=== PATIENT | male | born 1960 | race Hispanic/Latino ===

== ENCOUNTER 2023-03-28 08:54 | Day surgery (SDC) | payer MEDICARE ==
[2023-03-21 11:14] LABS: BASOPHILS # (AUTO) 0.05 K/uL (0.00-0.20); BASOPHILS % (AUTO) 0.5 % (0.0-5.0); EOSINOPHILS # (AUTO) 0.31 K/uL (0.00-0.70); EOSINOPHILS % (AUTO) 2.8 % (0.0-8.0); HEMATOCRIT 37.6 % (42-54); IMMATURE GRANULOCYTE ABSOLUTE 0.12 K/uL (0-1); LYMPHOCYTES # (AUTO) 2.6 K/uL (1.0-4.8); LYMPHOCYTES % (AUTO) 23.3 % (21.0-51.0); MEAN CORPUSCULAR HEMOGLOBIN 29.5 pg (27.0-33.0); MEAN CORPUSCULAR HGB CONC 33.5 g/dL (32.0-36.0); MEAN CORPUSCULAR VOLUME 88.1 fL (79-99); MONOCYTES # (AUTO) 0.9 K/uL (0.1-1.0); MONOCYTES % (AUTO) 7.9 % (3.0-13.0); NEUTROPHILS # (AUTO) 7.1 K/uL (1.8-7.7); NEUTROPHILS % (AUTO) 64.4 % (40.0-77.0); PLATELET COUNT (AUTO) 365 K/uL (130-400); RED BLOOD CELL COUNT(AUTO) 4.27 MIL/uL (4.50-6.20); RED CELL DISTRIBUTION WIDTH 13.2 % (11.0-15.5); WHITE BLOOD COUNT (AUTO) 11.1 K/uL (4.8-10.8)
[2023-03-21 11:18] VITALS: BP 136/82; PULSE 96; RESP 18
[2023-03-21 11:19] LABS: CREATININE 1.5 mg/dL (0.5-1.5); POTASSIUM 5.1 mmol/L (3.5-5.1)
[2023-03-21 11:23] LABS: INR < 0.93 (0.85-1.15); PROTHROMBIN TIME 10.7 SEC (9.6-11.6)
[2023-03-21 11:25] LABS: PARTIAL THROMBOPLASTIN TIME 28.2 SEC (26.3-35.5)
[2023-03-21 11:58] LABS: B-TYPE NATRIURETIC PEPTIDE 23 pg/mL (0-100)
[2023-03-28] VITALS (7 sets, daily range): BP systolic 148–164; BP diastolic 88–98; PULSE 96–107; RESP 13–18
[~2023-03-28] VITALS: Ht 160 cm; Wt 107.9 kg
[~2023-03-28 08:54] MED LIST: ATOR40TA69 PO; CARV6.25 PO; EMPA10TA PO; FURO40TA5 PO; GABA-529 PO; INSU100I35 SQ; LISI20TA24 PO; NITR0.4T50 SL; SEMA2PEN SQ
[2023-03-28] MEDS ORDERED: 0.9%NACL 1000ML 1,000 ML IV ONE (09:22)
[2023-03-28] MEDS ORDERED: VERAPAMIL HCL 2.5 MG/ML VIAL ONE (11:29)
[2023-03-28] MEDS ORDERED: LIDOCAINE HCL 400MG/20ML VIAL ONE (11:29)
[2023-03-28] MEDS ORDERED: HEPARIN 10,000 UNIT/10ML (1,000 UNIT/ML) VIAL ONE (11:30)
[2023-03-28] MEDS ORDERED: IOHEXOL 350 MG/ML 100ML INFUS..BTL IV ONE (11:39)
[2023-03-28] MEDS ORDERED: FENTANYL CITRATE PF 50 MCG/1 ML 2ML VIAL ONE (11:46)
[2023-03-28] MEDS ORDERED: MIDAZOLAM HCL 1 MG/ML 2ML VIAL ONE (11:46)
[2023-03-28] MEDS ORDERED: HYDRALAZINE 20MG/ML VIAL ONE (12:20)
[2023-03-28] MEDS ORDERED: IOHEXOL-350 50ML VIAL IV ONE (12:22)
[2023-03-28] MEDS ORDERED: DEXTROSE 50%-WATER 50 ML DISP.SYRIN IV PRN (13:00)
[2023-03-28] MEDS ORDERED: GLUCAGON 1MG KIT 1 MG ML IM PRN (13:00)
[2023-03-28] MEDS ORDERED: 0.9%NACL 1000ML 1,000 ML IV SCH (13:00)
[2023-03-28] MEDS ORDERED: ACETAMINOPHEN WITH CODEINE 1 TAB TAB PO PRN (13:00)
[2023-03-28] MEDS ORDERED: AEC81 PO (13:49)
== END 2023-03-28 15:30 | disposition home or self-care (01) ==
LOC: DAH 08:54
PROVIDERS: ATTEND Internal Medicine
DX: I25.118 Atherosclerotic heart disease of native coronary artery with other forms of angina pectoris (principal); I25.82 Chronic total occlusion of coronary artery; I11.0 Hypertensive heart disease with heart failure; I50.42 Chronic combined systolic (congestive) and diastolic (congestive) heart failure; I25.5 Ischemic cardiomyopathy; E11.9 Type 2 diabetes mellitus without complications; I25.2 Old myocardial infarction; Z79.899 Other long term (current) drug therapy; Z95.5 Presence of coronary angioplasty implant and graft; Z82.49 Family history of ischemic heart disease and other diseases of the circulatory system; Z83.3 Family history of diabetes mellitus; Z79.82 Long term (current) use of aspirin; Z79.01 Long term (current) use of anticoagulants; Z98.890 Other specified postprocedural states
CPT/HCPCS: 80048; 83880; 85025; 85610; 85730; 36415; 71045; 93005; 93458; 82948 ×2; C1769; C1894; A4649; J3010; J3490 ×2; J7030; J0360; J1644 ×2; J2250; Q9967 ×2; A4215; A4222; A4221; A4663; A4216; A4606; Q9965; A4223 ×3; 96360; 96361; 99156; 99157

== ENCOUNTER 2023-05-29 06:11 | Day surgery (SDC) | payer MEDICARE ==
[2023-05-27 10:33] LABS: BASOPHILS # (AUTO) 0.04 K/uL (0.00-0.20); BASOPHILS % (AUTO) 0.4 % (0.0-5.0); EOSINOPHILS % (AUTO) 1.9 % (0.0-8.0); HEMATOCRIT 38.9 % (42-54); IMMATURE GRANULOCYTE ABSOLUTE 0.07 K/uL (0-1); LYMPHOCYTES # (AUTO) 2.3 K/uL (1.0-4.8); LYMPHOCYTES % (AUTO) 22.1 % (21.0-51.0); MEAN CORPUSCULAR HEMOGLOBIN 29.6 pg (27.0-33.0); MEAN CORPUSCULAR HGB CONC 33.9 g/dL (32.0-36.0); MEAN CORPUSCULAR VOLUME 87.2 fL (79-99); MONOCYTES # (AUTO) 0.8 K/uL (0.1-1.0); MONOCYTES % (AUTO) 7.6 % (3.0-13.0); NEUTROPHILS % (AUTO) 67.3 % (40.0-77.0); PLATELET COUNT (AUTO) 260 K/uL (130-400); RED BLOOD CELL COUNT(AUTO) 4.46 MIL/uL (4.50-6.20); RED CELL DISTRIBUTION WIDTH 14.1 % (11.0-15.5); WHITE BLOOD COUNT (AUTO) 10.4 K/uL (4.8-10.8)
[2023-05-27 10:36] LABS: APPEARANCE,URINE CLEAR (CLEAR); BILIRUBIN,URINE NEGATIVE (NEGATIVE); GLUCOSE, URINE (UA) >=1000 mg/dL (NEGATIVE); KETONES,URINE NEGATIVE (NEGATIVE); LEUKOCYTE ESTERASE ,URINE NEGATIVE Leu/uL (NEGATIVE); NITRATE,URINE NEGATIVE (NEGATIVE); OCCULT BLOOD,URINE NEGATIVE (NEGATIVE); PROTEIN,URINE 30 mg/dL (NEGATIVE); UROBILINOGEN,URINE 0.2 mg/dL (0.2-1.0)
[2023-05-27 10:37] LABS: ADD UA MICROSCOPIC YES; COLOR,URINE LIGHT-YELLOW (YELLOW)
[2023-05-27 10:40] LABS: MUCUS,URINE RARE LPF (None Seen)
[2023-05-27 10:45] LABS: INR < 0.93 (0.85-1.15); PROTHROMBIN TIME 10.4 SEC (9.6-11.6)
[2023-05-27 10:46] LABS: CREATININE 1.7 mg/dL (0.5-1.5); POTASSIUM 4.9 mmol/L (3.5-5.1)
[2023-05-27 10:58] LABS: B-TYPE NATRIURETIC PEPTIDE 19 pg/mL (0-100)
[2023-05-28 09:13] VITALS: BP 137/75; PULSE 102; RESP 21
[2023-05-29] VITALS (9 sets, daily range): BP systolic 134–201; BP diastolic 71–91; PULSE 76–96; RESP 12–18
[~2023-05-29] VITALS: Ht 160 cm; Wt 110.7 kg
[~2023-05-29 06:11] MED LIST changes: +AEC81 PO; +CARV25TA PO; -CARV6.25 PO; +CLOP75TA32 PO; -EMPA10TA PO; +EMPA25TA PO; +TAMS-1 PO
[2023-05-29] MEDS ORDERED: 0.9%NACL 1000ML 1,000 ML IV ONE (07:10)
[2023-05-29] MEDS ORDERED: FENTANYL CITRATE PF 50 MCG/1 ML 2ML VIAL ONE (07:15)
[2023-05-29] MEDS ORDERED: MIDAZOLAM HCL 1 MG/ML 2ML VIAL ONE (07:15)
[2023-05-29] MEDS ORDERED: VERAPAMIL HCL 2.5 MG/ML VIAL ONE (07:15)
[2023-05-29] MEDS ORDERED: LIDOCAINE HCL 400MG/20ML VIAL ONE (07:15)
[2023-05-29] MEDS ORDERED: NITROGLYCERIN 50MG VIAL ONE (07:16)
[2023-05-29] MEDS ORDERED: HEPARIN 10,000 UNIT/10ML (1,000 UNIT/ML) VIAL ONE (07:16)
[2023-05-29] MEDS ORDERED: IOHEXOL 350 MG/ML 100ML INFUS..BTL IV ONE (07:26)
[2023-05-29] MEDS ORDERED: ASPIRIN 81MG CHEW TAB ONE (08:05)
[2023-05-29] MEDS ORDERED: CLOPIDOGREL 300MG TAB ONE (08:05)
[2023-05-29] MEDS ORDERED: GLUCAGON 1MG KIT 1 MG ML IM PRN (08:30)
[2023-05-29] MEDS ORDERED: DEXTROSE 50%-WATER 50 ML DISP.SYRIN IV PRN (08:30)
[2023-05-29] MEDS ORDERED: 0.9%NACL 1000ML 1,000 ML IV SCH (08:30)
== END 2023-05-29 11:06 | disposition home or self-care (01) ==
LOC: DAH 06:11
PROVIDERS: ATTEND Internal Medicine
DX: I25.118 Atherosclerotic heart disease of native coronary artery with other forms of angina pectoris (principal); I42.9 Cardiomyopathy, unspecified; I25.82 Chronic total occlusion of coronary artery; I11.0 Hypertensive heart disease with heart failure; I50.9 Heart failure, unspecified; E11.9 Type 2 diabetes mellitus without complications; I25.2 Old myocardial infarction; Z95.5 Presence of coronary angioplasty implant and graft; Z82.49 Family history of ischemic heart disease and other diseases of the circulatory system; Z83.3 Family history of diabetes mellitus; Z79.82 Long term (current) use of aspirin; Z79.01 Long term (current) use of anticoagulants; Z79.899 Other long term (current) drug therapy
CPT/HCPCS: 80048; 83880; 85025; 85610; 85730; 81001; 36415; 71045; 93005; 82948; 93454; C9600; C1769 ×2; C1887; C1725 ×2; C1874; C1894; A4649; J3010; J3490 ×3; J7030; J1644 ×2; J2250; Q9967; A4215; A4222; A4221; A4663; A4216; A4606; Q9965 ×2; A4223 ×3; 99156; 99157